=== PATIENT | male | born 1980 | race Caucasian/White ===

== ENCOUNTER 2017-02-15 13:11 | Inpatient (IN) | payer MEDICARE, OTHER ==
[~2017-02-15] VITALS: Ht 162.6 cm; Wt 60.6 kg
[~2017-02-15 13:11] MED LIST: ARTIFICIAL TEAR15 ML OU; ASCORBIC ACID500 MG PO; ASPIR-LOW81 MG PO; ATIVAN0.5 MG PO; BISAC-EVAC10 MG PR; CALCI-CHEW500 MG PO; CLARITIN10 MG PO; CLINDAMYCIN HC300 MG PO; DAILY MULTIPLE1 EAC1 PO; DAILY VITE1 EACH PO; DEPAKOTE SPRIN125 MG PO; DEPAKOTE500 MG PO; DOCUSATE CALCI240 MG PO; DULCOLAX10 MG RC; FAMOTIDINE20 MG PO; FLEET ENEMA133 ML RC; LACTULOSE10 GM/15 M PO; LEVOTHYROXINE50 MCG PO; LORATADINE10 MG PO; LOTRISONE CREAM45 GM TOP; MAXZIDE 37.5 M1 EACH PO; MERREM1 GM IV; OLANZAPINE2.5 MG PO; PAIN RELIEF325 MG PO; PEPCID20 MG PO; SURFAK240 MG PO; SYNTHROID50 MCG PO; TRIAMTERENE-HC1 EAC1 PO; TYLENOL EXTRA500 MG PO; VITAMIN C1000 M1 PO; VITAMIN D31000 UNI1 PO; VITAMIN D31000 UNIT PO; ZOLOFT100 MG PO; ZYPREXA2.5 MG PO
== END 2017-02-23 20:33 | DRG 872 ==
LOC: ER 13:11 → MED 15:34
PROVIDERS: ADMIT Internal Medicine
DX: A41.9 Sepsis, unspecified organism (principal); T83.511A Infection and inflammatory reaction due to indwelling urethral catheter, initial encounter; N39.0 Urinary tract infection, site not specified; R65.20 Severe sepsis without septic shock; B95.2 Enterococcus as the cause of diseases classified elsewhere; G80.9 Cerebral palsy, unspecified; Z66 Do not resuscitate; N31.9 Neuromuscular dysfunction of bladder, unspecified; G40.909 Epilepsy, unspecified, not intractable, without status epilepticus; Z87.440 Personal history of urinary (tract) infections; F41.9 Anxiety disorder, unspecified; F32.9 Major depressive disorder, single episode, unspecified; I10 Essential (primary) hypertension; E03.9 Hypothyroidism, unspecified; Z79.899 Other long term (current) drug therapy; Z88.1 Allergy status to other antibiotic agents; I95.9 Hypotension, unspecified
CPT/HCPCS: 36415; 96361; 96365; 97161-GP; 97166; J0696; J1650; J3370; J7050